=== PATIENT | female | born 1990 | race Caucasian/White ===

== ENCOUNTER 2019-03-17 20:38 | Inpatient (IN) ==
[2019-03-17 21:08] LABS: Basophils % 0.3 % (0.0-0.8); Eosinophils % 0.4 % (0.00-10.9); Hematocrit 37.1 VOL% (35.7-47.0); Hemoglobin 12.3 GM/DL (12.0-16.0); Immature Granulocytes % 2.8 %; Immature Granulocytes Absolute 0.31 #; Lymphocytes # 2.3 10*3/uL (1.4-4.0); Lymphocytes % 20.4 % (21.3-54.2); Mean Corpuscular HGB Conc 33.2 GM/DL (32-36); Mean Corpuscular Volume 92.3 FL (87-102); Monocytes % 9.6 % (1.7-12.7); Neutrophils % 66.5 % (38.7-73.9); Platelet Count 183 T/CUMM (130-400); Red Blood Count 4.02 MC/CUMM (3.8-5.5); Red Cell Distribution Width 13.6 % (9.3-17.3); White Blood Count 11.2 T/CUMM (4-12)
[2019-03-17] MEDS ORDERED: INFLUENZA VIRUS VACCINE 0.5 ML SYRINGE IM ONE (21:25)
[2019-03-17 21:30] LABS: Alanine Aminotransferase 19 U/L (13-56); Albumin 2.9 G/DL (3.4-5.0); Alkaline Phosphatase 96 U/L (45-117); Aspartate Amino Transferase 17 U/L (0-37); Bilirubin,Total < 0.39 MG/DL (0.2-1.0); Blood Urea Nitrogen 6 MG/DL (7-18); Calcium 8.9 MG/DL (8.5-10.1); Estimated Glom Filtration Rate 165 ML/MIN; Glucose 121 MG/DL (74-106); Osmolality,Calculated 271.8 MOS/KG (273-304); Total Protein 6.5 G/DL (6.4-8.3)
[2019-03-17 22:52] LABS: INR 0.9; PT Patient Result 9.4 SECS (9.6-12.2); Partial Thromboplastin Time 22.4 SECS (20.8-36.0)
[2019-03-17] MEDS: LACTATED RINGERS 1,000 ML IV SCH (23:50)
[2019-03-18] MEDS: BUTORPHANOL 2 MG/ML VIAL IV PRN ×2 (01:48→06:19)
[2019-03-18] MEDS: ONDANSETRON 4 MG/2 ML VIAL IV PRN (01:48)
[2019-03-18] MEDS: LACTATED RINGERS 1,000 ML IV SCH ×3 (04:27→08:47)
[2019-03-18] MEDS: amLODIPine 10 MG TABLET PO SCH (08:44)
[2019-03-18] MEDS: BUTORPHANOL 1 MG/ML VIAL IV PRN ×2 (10:00→16:53)
[2019-03-18] MEDS ORDERED: ALUMINUM/MAGNES/SIMETH MAX STR 30 ML UDCUP PO PRN (14:38)
[2019-03-18] MEDS ORDERED: FAMOTIDINE 20 MG/2 ML VIAL IV ONE (20:52)
[2019-03-18] MEDS: busPIRone 5 MG TABLET PO SCH (21:23)
[2019-03-19] MEDS: BUTORPHANOL 1 MG/ML VIAL IV PRN ×2 (05:07→07:31)
[2019-03-19] MEDS: ONDANSETRON 4 MG/2 ML VIAL IV PRN (05:07)
[2019-03-19] MEDS ORDERED: CITRIC ACID/SODIUM CITRATE 30 ML UDCUP PO ONE (08:23)
[2019-03-19] MEDS ORDERED: ePHEDrine 50 MG/ML AMP IV PRN (08:23)
[2019-03-19] MEDS ORDERED: LACTATED RINGERS 1,000 ML IV ONE (08:23)
[2019-03-19] MEDS ORDERED: FAMOTIDINE 20 MG/2 ML VIAL IV ONE (08:23)
[2019-03-19] MEDS ORDERED: hydrOXYzine HCL 25 MG/1 ML VIAL IM PRN (08:24)
[2019-03-19] MEDS ORDERED: diphenhydrAMINE 50 MG/1 ML VIAL IV PRN ×2 (08:24)
[2019-03-19] MEDS ORDERED: PROMETHAZINE 25 MG/1 ML VIAL IM ONE (08:24)
[2019-03-19] MEDS ORDERED: NALOXONE 0.4 MG/ML VIAL IV PRN (08:24)
[2019-03-19] MEDS ORDERED: OXYTOCIN/LR 20 UNIT/1,000 ML BAG IV SCH (08:30)
[2019-03-19] MEDS ORDERED: fentaNYL 2 MCG/ROPIV 0.2% EPID 100 ML EPIDURAL SCH (08:30)
[2019-03-19] MEDS: busPIRone 5 MG TABLET PO SCH (08:58)
[2019-03-19] MEDS: amLODIPine 10 MG TABLET PO SCH (08:58)
[2019-03-19 12:20] LABS: Apearance,Urine CLEAR (Clear); Bilirubin,Urine Negative (Negative); Blood, Urine Moderate mg/dL (Negative); Glucose,Urine (UA) Negative (Negative); Ketones,Urine 20 mg/dL (Negative); Mucus,Urine Moderate /LPF (Occasional); Nitrite,Urine Negative (Negative); Protein,Urine 30 MG/DL; RBC,Urine 1 /HPF (0-4); Squamous Epithelial Cell,Urine Occasional /HPF (0-10); Urine Specific Gravity 1.017 (1.001-1.035); Urine Urobilinogen < 2.0 EU/DL (0.2-1.0); WBC,Urine 4 /HPF (0-6)
[2019-03-19 12:22] LABS: Urine Color Dark yellow (Yellow)
[2019-03-19] MEDS: LACTATED RINGERS 1,000 ML IV SCH (12:25)
[2019-03-19] MEDS ORDERED: miSOPROStoL 200 MCG TABLET ONE (12:38)
[2019-03-19] MEDS ORDERED: METHYLERGONOVINE 0.2 MG/1 ML AMP ONE ×2 (12:39→19:09)
[2019-03-19] MEDS ORDERED: LIDOCAINE 1% 50 ML VIAL ONE (12:46)
[2019-03-19] MEDS ORDERED: ACETAMINOPHEN 325 MG TABLET PO PRN (13:06)
[2019-03-19] MEDS ORDERED: BISACODYL 10 MG SUPP RECTAL PRN (13:06)
[2019-03-19] MEDS ORDERED: oxyCODONE/ACETAMINOPHEN 5-325 MG TABLET PO PRN ×2 (13:06)
[2019-03-19] MEDS ORDERED: OXYTOCIN/LR 20 UNIT/1,000 ML BAG IV ONE (13:06)
[2019-03-19] MEDS ORDERED: RHO(D) IMMUNE GLOBULIN 300 MCG SYRINGE IM ONE (13:06)
[2019-03-19] MEDS ORDERED: BENZOCAINE 20%/MENTHOL 0.5% SPRAY 56 GM CAN TOP PRN (13:06)
[2019-03-19] MEDS ORDERED: MEASLES/MUMPS/RUBELLA VACCINE 0.5 ML VIAL SUBCUT ONE (13:06)
[2019-03-19] MEDS ORDERED: LANOLIN 50% CREAM 0.3 OZ TUBE TOP PRN (13:06)
[2019-03-19] MEDS ORDERED: ONDANSETRON 4 MG/2 ML VIAL IV PRN (13:06)
[2019-03-19] MEDS ORDERED: WITCH HAZEL PADS 100/JAR TOP PRN (13:06)
[2019-03-19] MEDS ORDERED: HYDROCORTISONE 2.5% RECTAL CREAM 30 GM TUBE TOP PRN (13:06)
[2019-03-19] MEDS ORDERED: DIPH/TET/ACEL PERT BOOSTER VACCINE 0.5 ML VIAL IM ONE (13:06)
[2019-03-19] MEDS: DOCUSATE SODIUM 100 MG CAPSULE PO SCH (20:43)
[2019-03-19] MEDS: IBUPROFEN 800 MG TABLET PO PRN (20:43)
[2019-03-20 05:38] LABS: Basophils % 0.2 % (0.0-0.8); Eosinophils # 0.1 10*3/uL (0.0-0.87); Eosinophils % 0.6 % (0.00-10.9); Hematocrit 35.6 VOL% (35.7-47.0); Hemoglobin 11.5 GM/DL (12.0-16.0); Immature Granulocytes % 1.3 %; Immature Granulocytes Absolute 0.13 #; Lymphocytes # 2.5 10*3/uL (1.4-4.0); Lymphocytes % 24.2 % (21.3-54.2); Mean Corpuscular HGB Conc 32.3 GM/DL (32-36); Mean Corpuscular Volume 94.2 FL (87-102); Mean Platelet Volume 12.5 FL (9.6-12.0); Monocytes % 9.2 % (1.7-12.7); Neutrophils % 64.5 % (38.7-73.9); Platelet Count 142 T/CUMM (130-400); Red Blood Count 3.78 MC/CUMM (3.8-5.5); Red Cell Distribution Width 13.6 % (9.3-17.3); White Blood Count 10.1 T/CUMM (4-12)
[2019-03-20] MEDS: DOCUSATE SODIUM 100 MG CAPSULE PO SCH ×2 (08:06→20:42)
[2019-03-20] MEDS: IBUPROFEN 800 MG TABLET PO PRN ×2 (08:06→17:51)
[2019-03-20] MEDS: busPIRone 5 MG TABLET PO SCH (08:06)
[2019-03-20] MEDS: amLODIPine 10 MG TABLET PO SCH (08:06)
[2019-03-21 07:09] VITALS: BP 102/63
[2019-03-21] MEDS: DOCUSATE SODIUM 100 MG CAPSULE PO SCH (07:42)
[2019-03-21] MEDS: amLODIPine 10 MG TABLET PO SCH (07:43)
[2019-03-21] MEDS ORDERED: POTASSIUM CHLORIDE 20 MEQ TABLET PO SCH (09:00)
[2019-03-21] MEDS ORDERED: SERTRALINE 50 MG TABLET PO SCH (09:00)
== END 2019-03-21 11:35 | disposition home or self-care (01) | DRG 806 ==
LOC: N.LDOUT 20:38 → N.LD 20:40 → N.OB 03-19 16:15
PROVIDERS: ADMIT Specialist; ATTEND Specialist